=== PATIENT | male | born 1985 | race Two or more races ===

== ENCOUNTER 2021-08-31 01:09 | Emergency (ER) | payer OTHER ==
[~2021-08-31] VITALS: Ht 170.2 cm; Wt 93.0 kg
[2021-08-31] MEDS ORDERED: KETO10TA2 PO (02:30)
== END 2021-08-31 02:34 ==
LOC: ER 01:09
DX: S69.91XA Unspecified injury of right wrist, hand and finger(s), initial encounter (principal); X58.XXXA Exposure to other specified factors, initial encounter; Y93.9 Activity, unspecified; Y92.9 Unspecified place or not applicable; Y99.9 Unspecified external cause status

== ENCOUNTER 2022-02-28 11:40 | Outpatient (CLI) | payer OTHER ==
[~2022-02-28 11:40] MED LIST: KETO10TA2 PO
== END 2022-02-28 11:49 | disposition home or self-care (01) ==
LOC: LAB 11:40
DX: Z20.828 Contact with and (suspected) exposure to other viral communicable diseases (principal); Z20.818 Contact with and (suspected) exposure to other bacterial communicable diseases